=== PATIENT | male | born 1955 | race Caucasian/White ===

== ENCOUNTER 2021-09-14 10:03 | Day surgery (SDC) | payer OTHER, SELFPAY ==
[2021-09-14 10:34] VITALS: BP 122/79; PULSE 63; RESP 16; TEMP 36.7; O2SAT 96; BMI 23.6
[2021-09-14] MEDS: Lactated Ringers 1,000 ML 100 ML IV (10:41)
--- NOTE | 2021-09-14 11:40 | LES_PTH ---
PATIENT: SONU BROWN LOC: [facility] – [place] U#:[id number] AGE/SX: 66/M ROOM: RE09/14/[address]: Dr. Robert Begum MD : 1955 BED: DIS: 09/14/2021 SPEC #: [id number] RECD: 09/14/21 14:40 STATUS: DILCIA [place] #: [id number] SOL: 09/14/21 11:[address]: Robert Begum DEPT: SURGICAL PATHOLOGY RECD BY: Veronica Ramesh ENTERED: 09/15/21 10:31 SP TYPE: Lesion OTHR DR: Dr. Kirt Flores, DO Tissues: Skin of external ear, NOS Procedures: Surgery Specimen Level IV HEADER OPERATION: Excision ear lesion PRE-OP DIAGNOSIS: Left ear mass TISSUE SUBMITTED: Left ear mass MICROSCOPIC DIAGNOSIS Left ear mass, biopsy: Capillary hemangioma. AM:thelma 09/16/2021 COMMENT Case has been reviewed in consultation with Dr. De Leon who concurs with the above diagnosis. IDC:SJ MICROSCOPIC DESCRIPTION Slides are reviewed. GROSS DESCRIPTION Received in fixative is one container labeled with the patient's name and designated left ear mass. The specimen consists of a round piece of howe-white skin measuring 0.8 x 0.8 cm and up to 0.6 cm in diameter. The specimen is inked, bisected and submitted entirely in one cassette. / TYLOR:thelma 09/15/21 TC:5 CPT: 14273
[2021-09-14] MEDS: Lidocaine 1% /Epi 1:100 (50ml) 50 ML VIAL (14:05)
[2021-09-14] MEDS: Mupirocin Ointment 22gm Tube 1 APPLIC (14:12)
--- NOTE | 2021-09-14 14:21 | PCM.DC ---
Discharge Instructions Diet Discharge Diet: No restrictions Activity Discharge Activity: Return to Normal Activity Dressing / Incision Call your doctor if your incision/area has: Increased Pain/ Swelling Additional Dressing/Incision Instructions:: starting morning, may gently wash incision site with soap water. starting immediately, mupirocin ointment to the wound three times daily. Follow Up Care Please Follow Up With: Jamison Begum MD When: 1 week Test Results: Test results from this visit will be discussed in further detail at your follow-up appointment, if applicable. Discharge Plan Admission Attending Provider: Jamison Begum Primary Care Provider: Kirt Flores Discharge Orders/Prescriptions Prescriptions: No Action acetaminophen [Tylenol] 325 mg Tablet 650 mg PO Q6H PRN (Reason: Pain) RF: 0 Disposition Discharge Orders: Discharge Patient (Routine); Ordered 09/14/21 Ordered By: Dr. Jamison Begum
--- NOTE | 2021-09-14 14:22 | PCM.OPRPT ---
Problems Associated Problem List Diagnoses (1) Mass of left ear: Report of Operation Date of Procedure: 09/14/21 Pre-Operative Diagnosis: left ear mass Post-Operative Diagnosis: left ear mass Surgery/Procedure Performed:: excision left ear mass Surgeon: Jamison Begum Type of Anesthesia: General Description of Procedure: on the day of the procedure, after appropriate informed consent was obtained, the patient was brought to the operating room and placed in supine position on the operating table. he was placed under general anesthesia by the anesthesiologist. the left auricular mass at the intertragic notch was 1cm in diameter; it was injected with lidocaine/epinephrine. a circumferential incision was made at the base with a round valley blade. it was dissected in a supraperichondrial plane with an iris scissor. hemostasis was achieved with the bipolar. the defect was undermined in all directions and the wound reapproximated with 5-0 fast gut. he was transferred to the PACU in stable condition.
[2021-09-14 14:29] VITALS: BP 115/73; BP 122/79; PULSE 67; RESP 20; TEMP 36.7; O2SAT 95
[2021-09-14 14:53] VITALS: BP 108/77; BP 122/79; PULSE 60; RESP 18; O2SAT 93
[2021-09-14 14:54] VITALS: BP 115/79; BP 122/79; PULSE 59; RESP 18; TEMP 35.9; O2SAT 95
[2021-09-14 15:51] VITALS: BP 122/79; BP 127/82; PULSE 56; RESP 16; TEMP 36.4; O2SAT 93
== END 2021-09-14 15:55 | disposition home or self-care (01) ==
LOC: SDC 10:08 → AC 10:10
PROVIDERS: PCP Student in an Organized Health Care Education/Training Program; Referring Provider Otolaryngology; Visit Provider Otolaryngology
PROC: (CPT 11442; principal; 2021-09-14 11:30)
DX: D18.01 Hemangioma of skin and subcutaneous tissue (principal); R22.0 Localized swelling, mass and lump, head; F17.210 Nicotine dependence, cigarettes, uncomplicated
CPT/HCPCS: 00300; 11442; 88305; J7120; J2405

== ENCOUNTER 2023-09-16 10:31 | Emergency (ER) | payer MEDICARE, OTHER, SELFPAY ==
[2023-09-16 10:32] VITALS: BP 100/79; PULSE 77; RESP 20; TEMP 36.4; O2SAT 99
--- NOTE | 2023-09-16 10:52 | EDS_ITS ---
HPI History of Present Illness Chief Complaint: Back Detail of Chief Complaint: Back pain Informant: patient Narrative Narrative: Patient presents with complaint of back pain that started about 3 days ago. Patient states that 2 weeks ago he was coming down the steps of his garage when he had sharp pain from his left leg went to his low back and down the right leg. Initially symptoms resolved. He had been doing relatively well and was able to mow his lawn 4 days ago without difficulty. 3 days ago woke up and had more pain in his low back. At times feels like his legs want to give out because of the pain. Patient has a left below-knee amputation. He denies loss of bowel or bladder function. Pain is positional and worse with certain movements. Patient states that in the s he had a discectomy. Denies urinary symptoms. Denies fevers. Denies fall or other injuries otherwise. [facility] Medical History (Updated 09/16/23 @ 11:[address] Charlee Mosley, ) Alcohol use Marijuana use Migraine headache Smoker Wears dentures Home Medications acetaminophen 325 mg tablet (Tylenol) 650 mg PO Q6H PRN Pain 09/10/21 [History Last Taken Unknown] cyclobenzaprine 10 mg tablet 10 mg PO TID PRN Muscle Spasm #20 TABLETS 09/16/23 [Rx Last Taken Unknown] hydrocodone-acetaminophen 5-325mg 5mg-325mg 1 tab PO Q4H PRN PRN Pain 2 days #15 TABLETS 09/16/23 [Rx Last Taken Unknown] methylprednisolone 4 mg tablets in a dose pack (Methylpred DP) 4 mg PO DAILY #21 tabs 09/16/23 [Rx Last Taken Unknown] Allergy/AdvReac Type Severity Reaction Status Date / Time No Known Drug Allergies Allergy Unknown Verified 09/16/23 10:32 Surgical History (Updated 09/10/21 @ 09:35 by Maricruz Ashraf) History of carpal tunnel surgery of right wrist Hx laparoscopic cholecystectomy Hx of amputation of foot Hx of foot surgery Hx of lumbar discectomy Hx of tonsillectomy Social History Smoking Status: Current every day smoker tobacco type: cigarettes ROS ROS ED Review of Systems ROS Unobtainable: other Constitutional Constitutional ED: Reports lethargy; Denies chills, fever(s), sweats or weight loss Eyes Eyes: Denies blurry vision, change in vision or diplopia ENT ENT ED: Denies rhinorrhea or sore throat Cardiovascular Cardiovascular: Denies chest pain, orthopnea or racing heartbeat Respiratory/Chest Respiratory/Chest: Denies cough, dyspnea, dyspnea on exertion, orthopnea or sputum Gastrointestinal Gastrointestinal: Denies abdominal pain, diarrhea, nausea or vomiting Genitourinary Genitourinary ED: Denies dysuria, hematuria or urinary frequency Musculoskeletal Musculoskeletal: Reports back pain; Denies arthralgias, myalgias or neck pain Integumentary Denies abscess, Abrasions or rash Neurologic Neurologic: Denies headache(s) or weakness Psychiatric Psychiatric: Denies anxiety, depression or suicidal thoughts Endocrine Endocrinology: Denies polydipsia, polyphagia or polyuria Hematologic/Lymphatic Hematologic/Lymphatic: Denies easy bleeding, easy bruising or lymphadenopathy Allergic/Immunologic Allergic/Immunologic ED: Denies mouth swelling, tongue swelling or urticaria EXAM Physical Exam Const Vital Signs: 09/16/23 10:32 Temperature 97.6 F L Temperature Source Temporal Pulse Rate 77 Respiratory Rate 20 H Blood Pressure 100/79 Blood Pressure Mean 86 Pulse Ox 99 Oxygen Delivery Method Room Air Positive well nourished and well developed General Appearance ED: well developed and NAD HEENT Reports TM's clear and moist mucous membranes normocephalic and atraumatic; Negative for trauma or tenderness Tympanic Membrane ED: Yes TM's clear Eyes PERRL and EOMs intact bilaterally General Eye ED: Negative for pale conjunctiva or scleral icterus Neck no lymphadenopathy, supple and no JVD General: Negative for tenderness Chest Wall inspection of chest normal and palpation of chest normal Chest: Negative for tenderness Resp normal respiratory effort and clear to auscultation bilaterally Effort and Inspection: Negative for respiratory distress or pain with movement Auscultation: Negative for rhonchi, wheezes or diminished lung sounds Cardio regular rate, regular rhythm, S1 normal heart sound, S2 normal heart sound and no murmurs Peripheral Pulses: pulses 2+ throughout GI normal to inspection, nondistended, normoactive bowel sounds, soft to palpation, non-tender, non-distended and no masses Back/Spine no CVA tenderness and no thoracic nor lumbar tenderness Back/Spine Narrative: Patient with diffuse tenderness palpation over the left lumbar paraspinal musculature that seems to reproduce his pain. No significant discomfort over the lumbar spine itself. He has negative straight leg raises. Deep tendon reflexes are plus 2 out of 4 at the right patella and Achilles. He has normal L5 extension on the right. Extremity normal to inspection General Extremety ED: Negative for edema General Extremity: Negative for edema Neuro oriented x3, CN's II-XII intact bilaterally, no sensory deficits noted and gait normal Sensorium / Orientation: awake, alert, oriented to person, oriented to place and oriented to time Motor Exam: strength 5/5 throughout and strength abnormal Psych mental status grossly normal Skin no rashes or lesions noted and no wounds MDM MDM MDM Narrative Medical decision making narrative: With atraumatic low back pain. In the differential would be muscle spasm versus lumbar radiculopathy versus kidney stone which I think is less likely based on his history and symptomatology. Patient was medicated with Dilaudid as well as Toradol and Norflex. He had good pain relief with that and he was able to ambulate without too much difficulty. Still has pain with certain movements. I do not feel imaging is indicated as he is had no pain and no significant midline bony tenderness on exam. Patient has a left leg prosthesis that is broken and he has it taped up and this may have potentially contributed to a change in his gait causing the issue with his back. Patient will be given a prescription for Howard as well as Flexeril and Medrol Dosepak. Patient advised to follow-up with his primary care physician within next 3 to 5 days. Patient advised to return if worsening pain, weakness extremities, change in bowel or bladder function, or condition worsening way. Likely I suspect likely a lumbar radiculopathy. Discharge Plan Triage Chief Complaint: Back ED Provider: Charlee Mosley Dx/Rx/DC Orders Clinical Impression: Back pain Instructions: ED Back Pain (Acute or Chronic), ED Sciatica Prescriptions: New cyclobenzaprine [cyclobenzaprine] 10 mg tablet 10 mg PO TID PRN (Reason: Muscle Spasm) Qty: 20 0RF hydrocodone-acetaminophen [hydrocodone-acetaminophen] 5-325 mg tablet 1 tab PO Q4H PRN PRN (Reason: Pain) 2 Days Qty: 15 0RF methylprednisolone [Methylpred DP] 4 mg tablets,dose pack 4 mg PO DAILY Qty: 21 0RF No Action acetaminophen [Tylenol] 325 mg Tablet 650 mg PO Q6H PRN (Reason: Pain) Primary Care Provider: Cliff Lay Referrals: Kirt Flores DO [Non-Staff] - 3-5 Days Disposition Disposition: Home, Self Care
[2023-09-16] MEDS: Orphenadrine 60 MG/2 ML Ampul IM (11:01)
[2023-09-16] MEDS: Ketorolac 30 MG/ML Syringe IM (11:01)
[2023-09-16] MEDS: HYDROmorphone 1 MG/ML Syringe IM (11:02)
== END 2023-09-16 11:57 | disposition home or self-care (01) ==
PROVIDERS: Emergency Provider Emergency Medicine; Visit Provider Emergency Medicine
DX: M54.9 Dorsalgia, unspecified (principal); F17.210 Nicotine dependence, cigarettes, uncomplicated
CPT/HCPCS: 96372; 99282

== ENCOUNTER 2024-06-11 12:09 | Emergency (ER) | payer MEDICARE, OTHER, SELFPAY ==
[2024-06-11 12:10] VITALS: BP 120/78; PULSE 106; RESP 18; TEMP 36.9; O2SAT 93; BMI 24.0
--- NOTE | 2024-06-11 12:29 | EKG12_ITS ---
Test Reason : SYNCOPE Blood Pressure : / mmHG Vent. Rate : 081 BPM Atrial Rate : 081 BPM P-R Int : 120 ms QRS Dur : 086 ms QT Int : 352 ms P-R-T Axes : 050 040 050 degrees QTc Int : 408 ms Normal sinus rhythm Normal ECG Confirmed by HENRIQUE MONTANA, SUKUMAR ([id number]), editor greeting card LAY ALCAZAR ([id number]) on 06/12/2024 10:18:30 AM Referred By: Confirmed By:SUKUMAR DUENAS MD
--- NOTE | 2024-06-11 12:30 | EX.ED.DYSGE1 ---
HPI History of Present Illness Chief Complaint: Syncope Narrative Narrative: 68 year-old male past medical history of artificial limb, currently being treated for possible infection, on a muscle relaxer, prednisone, and antibiotic presents with syncopal episode that he sustained prior to arrival. He states that he was standing outside his son-in-law's truck, and felt very hot. He was also standing near the tailpipe with the engine running. He had taken a muscle relaxer 30 minutes prior to this. As reported by his family that he had a syncopal episode. His son-in-law had to hold onto his arms to prevent him from falling. While he fell to the ground, he did not strike his head, denies any headache or neck pain. There was no loss of bowel or bladder, no tonic-clonic activity. Family states that he had a syncopal episode for few minutes, and when he awoke he was mildly confused which was very transient. His daughter came by the house 20 to 25 minutes after it happened and she stated that he did not have as good of the color as he does now. Patient states that he was standing by the side of the truck leaning on it, when he felt very flushed and hot, and stated that he had to get away from the heat. The next thing he remembers is waking up on the ground. He denies any prodromal chest pain or shortness of breath. [facility] Medical History Wears dentures Alcohol use Marijuana use Migraine headache Smoker Home Medications ?Medication ?Instructions ?Recorded ?Last Taken ?Type acetaminophen 325 mg tablet 650 mg PO Q6H PRN Pain 09/10/21 Unknown History (Tylenol) cyclobenzaprine 10 mg tablet 10 mg PO TID PRN Muscle Spasm #20 09/16/23 Unknown Rx TABLETS hydrocodone-acetaminophen 5-325mg 1 tab PO Q4H PRN PRN Pain 2 days 09/16/23 Unknown Rx 5mg-325mg #15 TABLETS methylprednisolone 4 mg tablets in 4 mg PO DAILY #21 tabs 09/16/23 Unknown Rx a dose pack (Methylpred DP) Allergy/AdvReac Type Severity Reaction Status Date / Time No Known Drug Allergies Allergy Unknown Verified 06/11/24 12:10 Surgical History Hx of lumbar discectomy History of carpal tunnel surgery of right wrist Hx of foot surgery Hx of tonsillectomy Hx laparoscopic cholecystectomy Hx of amputation of foot Social History Smoking Status: Current every day smoker tobacco type: cigarettes ROS ROS ED ROS Narrative Constitutional: No fever, no chills. HEENT: No sore throat. No neck pain. No loss of vision. No rhinorrhea. Cardiovascular: No chest pain. No palpitations. No pedal edema. Respiratory: No cough, no shortness of breath. Abdominal: No abdominal pain. No nausea. No vomiting. Genitourinary: No dysuria. No hematuria. Musculoskeletal: No myalgias. No arthralgias. Neurologic: No headaches. No dizziness. No lightheadedness. Positive syncopal episode. Varney flushed prior. Feels back to baseline. Skin: No rash. No change in color. Psychiatric: No depression. No anxiety. EXAM Physical Exam Narrative Exam Narrative: Afebrile. Vital signs noted. HEENT: Normocephalic. Atraumatic. PERRL, EOMI. Neck soft and supple. No point tenderness or step off. Cardiovascular: Positive tachycardia no murmurs, rubs, or gallops appreciated. Respiratory: No tachypnea. Lungs clear to auscultation bilaterally. Gastrointestinal: Abdomen soft, nontender, with normoactive bowel sounds. No rebound or guarding. Neurological: Awake. Alert. Nonfocal, nonlateralizing. Skin: No rash. Normal color. No pallor. Musculoskeletal: No pedal edema. Artificial left lower extremity. Const Vital Signs: 06/11/24 12:10 06/11/24 13:10 Temperature 98.4 F Temperature Source Temporal Pulse Rate 106 H Respiratory Rate 18 Respiratory Effort Normal Non-Labored Respiratory Pattern Normal Blood Pressure 120/78 Blood Pressure Mean 92 Pulse Ox 93 Oxygen Delivery Method Room Air MDM MDM MDM Narrative Medical decision making narrative: In the differential diagnosis is vasovagal syncope versus seizure versus syncope secondary to his muscle relaxer. I have low suspicion for carbon monoxide poisoning. Patient feels back to normal currently. I do not feel he needs a CT of the brain. EKG will be obtained to rule out dysrhythmia such as ventricular tachycardia, but once again he has normal neurological examination except for slight tachycardia. I will obtain baseline laboratories to check him for anemia or electrolyte imbalance but it does sound like he had a vasovagal episode in combination with the heat outside, him taking a muscle relaxer, and being near carbon monoxide, but the truck was outside. He will be bolused normal saline 1 L intravenously. EKG was obtained and interpreted by myself independently as normal sinus rhythm at 81 bpm without ectopy or acute ST changes. No STEMI. QTc normal at 408 ms. I reviewed his laboratory work and he has normal white count of 7.5, hemoglobin normal at 13.7, platelet count 222. Electrolyte panel is grossly unremarkable, no evidence of dehydration, glucose elevated at 118 with a normal anion gap of 9. Carboxyhemoglobin reported at 6.1. He is a smoker. I do not feel that he needs hyperbarics. Repeat examination at approximately 1400 shows him to be resting comfortably. He feels back to baseline as he did upon initial history and physical. I feel he probably had a vasovagal episode as stated previously in combination with his muscle relaxer, ambient heat, and being near the exhaust fumes. Disposition is discharged in stable condition. Return instructions were reviewed. Patient and family comfortable with the plan. History & Record Review Discussion w/independent historian: Patient Lab Data Attestation: I reviewed the patient's lab results. Labs: Laboratory Results - last 24 hr 06/11/24 12:55 WBC 7.5 RBC 4.31 L Hgb 13.7 Hct 39.4 L MCV 91.4 MCH 31.8 MCHC 34.8 RDW Std Deviation 43.7 RDW Coeff of Yisel 13.1 Plt Count 222 MPV 9.2 Immature Gran % (Auto) 0.400 Neut % (Auto) 63.9 Lymph % (Auto) 26.0 [place] % (Auto) 5.7 Eos % (Auto) 3.6 Baso % (Auto) 0.4 Absolute Neuts (auto) 4.8 Absolute Lymphs (auto) 1.96 Nucleated RBC % 0 Sodium 139 Potassium 3.5 Chloride 105 Carbon Dioxide 25.0 Anion Gap 9 BUN 12 Creatinine 0.90 Estim Creat Clear Calc 75.48 Est GFR (MDRD) Af Amer 108 Est GFR (MDRD) Non-Af 89 BUN/Creatinine Ratio 13.3 Glucose 118 H Calcium 8.5 Discharge Plan Triage Chief Complaint: Syncope ED Provider: Gigi Levine Dx/Rx/DC Orders Clinical Impression: Syncope, vasovagal Instructions: ED Fainting, Vagal Reaction Prescriptions: No Action acetaminophen [Tylenol] 325 mg Tablet 650 mg PO Q6H PRN (Reason: Pain) cyclobenzaprine [cyclobenzaprine] 10 mg tablet 10 mg PO TID PRN (Reason: Muscle Spasm) Qty: 20 0RF hydrocodone-acetaminophen [hydrocodone-acetaminophen] 5-325 mg tablet 1 tab PO Q4H PRN PRN (Reason: Pain) 2 Days Qty: 15 0RF methylprednisolone [Methylpred DP] 4 mg tablets,dose pack 4 mg PO DAILY Qty: 21 0RF Primary Care Provider: Cliff Lay Referrals: Cliff Lay DO [Primary Care Provider] - 3-5 Days if not improving Print Language: Turkmen Disposition Disposition: Home, Self Care
--- NOTE | 2024-06-11 12:52 | NURSING ---
NO OLD EKGS
[2024-06-11 13:02] LABS: Absolute Lymphocyte Count 1.96 X10^3/uL (0.83-4.51); Absolute Neutrophil Count 4.8 X10^3/uL (2.0-7.7); Basophil# 0.03 X10^3/uL; Basophil% 0.4 % (0-1); Eosinophil# 0.27 X10^3/uL; Eosinophils% 3.6 % (0-5); Hematocrit 39.4 % (40-54); Hemoglobin 13.7 g/dL (13.0-16.5); Lymphocyte # 1.96 X10^3/ul (0.83-4.51); Mean Corp Hgb Conc 34.8 g/dL (32-36); Mean Corpuscular Hgb 31.8 pg (27.0-32.0); Mean Corpuscular Volume 91.4 fL (80-94); Mean Platelet Vol. 9.2 fl (6.2-12.0); Monocyte# 0.43 X10^3/uL; Monocyte% 5.7 % (0-10); NRBC Flagged by Analyzer 0 % (0-5); Neutrophil # 4.81 X10^3/uL (2.7-7.7); Neutrophil % 63.9 % (47-70); Platelet Count 222 K/mm3 (150-450); RBC Distribution Width CV 13.1 % (11.6-14.6); RBC Distribution Width SD 43.7 fl (35.1-43.9); Red Blood Count 4.31 M/mm3 (4.6-6.2); White Blood Count 7.5 K/mm3 (4.4-11.0)
[2024-06-11] MEDS: 0.9% Normal Saline (1000mL) 1,000 ML 999 ML IV (13:02)
[2024-06-11 13:16] LABS: Anion Gap 9 (5-15); BUN 12 mg/dL (7-18); BUN/Creat Ratio 13.3 RATIO (10-20); Calcium,Total 8.5 mg/dL (8.5-10.1); Chloride 105 mmol/L (98-107); EST Glomerular Filtration Rate 89 mL/min (>60); Est Glom Filt Rate - Afr Amer 108 mL/min (>60); Estimated Creatinine Clearance 75.48 ml/min; Glucose 118 mg/dL (74-106); Potassium 3.5 mmol/L (3.5-5.1); Sodium Level 139 mmol/L (136-145)
[2024-06-11 13:57] LABS: Carboxyhemoglobin Order 6.1
[2024-06-11 14:12] LABS: Carboxyhemoglobin Frac (CO) 6.1 % (0.0-1.5)
[2024-06-11 14:17] VITALS: BP 122/77; PULSE 82; RESP 17; TEMP 36.1; O2SAT 99
== END 2024-06-11 14:19 | disposition home or self-care (01) ==
PROVIDERS: Emergency Provider Emergency Medicine; Visit Provider Emergency Medicine
DX: R55 Syncope and collapse (principal); F17.210 Nicotine dependence, cigarettes, uncomplicated
CPT/HCPCS: 80048; 82375; 85025; 93005; 96360; 99283; J7030; A4216